=== PATIENT | female | born 1990 | race Caucasian/White ===

== ENCOUNTER 2019-01-08 20:31 | Outpatient (CLI) | payer MEDICAID ==
[~2019-01-08] VITALS: Ht 157.5 cm; Wt 86.4 kg
[2019-01-08 21:03] VITALS: BP 111/63; PULSE 89; RESP 18
[2019-01-08] MEDS ORDERED: PREN-99 PO (21:12)
[2019-01-08] MEDS ORDERED: FOLI-49 PO (21:12)
[2019-01-08 21:14] VITALS: Ht 157.5 cm; Wt 86.4 kg
--- NOTE | 2019-01-08 23:47 | PN ---
Triage Information Date/Time 01/08/19 Reason for visit: headache ,vomiting mucous discharge ,spot vision Weeks of Gestation 36w4d /Para Diabetes: none Hypertention: none Additional information headache resolved with tylenol Objective Vital Signs Date Temp Pulse Resp B/P (MAP) Pulse Ox O2 O2 Flow FiO2 Time Delivery Rate 01/08/19 99.0 89 18 111/63 Room Air 21:03 (79) Heart Rate: 130's Heart Rate Comments CAT I tracing Contractions: None Exam Results/Medications Result Diagram: 01/08/19214901/08/192149 Results 24 hrs Laboratory Tests Test 01/08/19 21:15 01/08/19 21:50 Urine Color YELLOW Urine Clarity SLIGHTLY CLOUDY A Urine pH 5.0 Urine Specific [place] 1.028 Urine Ketones TRACE A Urine Nitrite NEGATIVE Urine Bilirubin NEGATIVE Urine Urobilinogen NEGATIVE Urine Leukocyte Esterase TRACE A Urine Microscopic RBC 7 H Urine Microscopic WBC 6 H Urine Squamous Epithelial Cells FEW Urine Calcium Oxalate Crystals MODERATE Urine Bacteria FEW A Urine Mucus MODERATE Urine Hemoglobin 1+ H Urine Glucose NEGATIVE Urine Total Protein NEGATIVE White Blood Count 12.1 H Red Blood Count 3.90 L Hemoglobin 11.5 L Hematocrit 35.1 L Mean Corpuscular Volume 90.0 Mean Corpuscular Hemoglobin 29.5 Mean Corpuscular Hemoglobin Concent 32.8 Red Cell Distribution Width 14.4 Platelet Count 220 Mean Platelet Volume 11.3 H Immature Granulocytes % 0.400 Neutrophils % 79.2 H Lymphocytes % 12.1 L Monocytes % 8.0 Eosinophils % 0.2 Basophils % 0.1 Nucleated Red Blood Cells % 0.0 Immature Granulocytes # 0.050 H Neutrophils # 9.6 H Lymphocytes # 1.5 Monocytes # 1.0 H Eosinophils # 0.0 Basophils # 0.0 Nucleated Red Blood Cells # 0.0 Prothrombin Time 12.2 Prothrombin Time Ratio 1.0 INR International Normalized Ratio 0.89 Activated Partial Thromboplast Time 29.7 Sodium Level 136 Potassium Level 3.5 Chloride Level 106 Carbon Dioxide Level 22 Anion Gap 8 Blood Urea Nitrogen 8 Creatinine 0.42 L Est Glomerular Filtrat Rate mL/min > 60 Glucose Level 87 Uric Acid 4.4 Calcium Level 8.5 Total Bilirubin 0.3 Direct Bilirubin 0.00 Indirect Bilirubin 0.3 Aspartate Amino Transf (AST/SGOT) 15 Alanine Aminotransferase (ALT/SGPT) 8 L Alkaline Phosphatase 113 Total Protein 6.8 Albumin 3.4 Globulin 3.40 H Albumin/Globulin Ratio 1.00 Imaging Results BPP 8/8 MORENO 11.2 EFW 2904gm Disposition: Discharge Assessment/Plan IUP 36w4d headahe resolved No GHTN plan discharge home with routine labor instructions RTH prn SANCHEZ SOTO MD Jan 08, 2019 23:46
--- NOTE | 2019-01-09 04:26 | TRIAGE ---
OB Triage Datetime Report Generated by CPN: 01/09/2019 04:26 Datetime: 01/08/2019 22:36 Labor Evaluation Frequency: 2.5-6 Monitor Mode: External Duration (sec)2399: 50-120 Quality: Mild Pattern: Normal: <= 5 Contractions in 10 Minutes Resting Tone [place]: Relaxed Heart Rate FHR Baseline Rate: 150 Monitor Mode: External US Variability: Moderate 6-25 bpm Accelerations: Prolonged Decelerations: None Category: Category I Datetime: 01/08/2019 22:19 Temperature Route: Axillary Datetime: 01/08/2019 22:17 Monitor Mode: External Monitor Mode: External US Datetime: 01/08/2019 22:00 Labor Evaluation Frequency: irregular Monitor Mode: External Duration (sec)2399: 50-90 Quality: Mild Pattern: Normal: <= 5 Contractions in 10 Minutes Resting Tone [place]: Relaxed Heart Rate FHR Baseline Rate: 145 Monitor Mode: External US Variability: Moderate 6-25 bpm Accelerations: 15X15 Decelerations: None Category: Category I Datetime: 01/08/2019 21:55 Monitor Mode: External Monitor Mode: External US Datetime: 01/08/2019 21:20 Vaginal Exam Dilatation (cms): 1.0 Effacement (%): 30 Station: -3 Exam By: danna fowler RN Cervix, Consistency: Soft Cervix, Position: Posterior Datetime: 01/08/2019 21:09 Monitor Mode: External Datetime: 01/08/2019 21:03 Stage of : OB Triage Maternal Assessment Level of Consciousness: Keenly Alert, Responsive DTR's/Clonus: DTRs 2+; No Clonus DTR's/Clonus: DTRs 2+; No Clonus Headache: Denies Headache: Generalized Blurred Vision: No Blurred Vision: Yes Respiratory Effort: Unlabored; Regular Rhythm; Equal Expansion Breath Sounds, Left: Clear and Equal Breath Sounds, Right: Clear and Equal Nausea/Vomiting: Hx of Nausea/Vomiting RUQ Epigastric Pain: Denies RUQ Epigastric Pain: Denies Facial Edema: None Facial Edema: None Fall Risk Assessment History of Falling: (0) No Secondary Diagnosis: (0) No Ambulatory Aid: (0) Bedrest/Nurse Assist IV Therapy: (0) No Gait: (0) Normal/Bedrest/Immobile Mental Status: (0) Oriented to Own Ability Fall Score: 0 Fall Risk Score Definition: No Risk: No action required Pain Assessment Pain Scale: 8 Pain Presence: Constant Pain Type: Ache Pain Location: Head Pain Relief Measures: Comfort Measures Datetime: 01/08/2019 20:59 Stage of : OB Triage Datetime: 01/08/2019 20:56 Time of Arrival: 01/08/2019 20:20 EGA: 36.4 Arrived By: Ambulatory Arrived From: Home Chief Complaint: c/o headache all day, seeing spots, vomitting, white mucus discharge Movement: Present Contractions: Denies/Absent Rupture of Membranes: Denies Vaginal Bleeding: None Vaginal Discharge: Present Recent Sexual Intercouse: Denies Abdominal Trauma: Not Applicable Patient Complaints: Headache; Visual Disturbance; Nausea; Vomiting Time Provider Notified: 01/08/2019 21:15 Provider Notified: TERRY Initial Plan: edith AGGARWAL MD
--- NOTE | 2019-01-09 04:38 | TRIAGE ---
OB Triage Datetime Report Generated by CPN: 01/09/2019 04:38 Datetime: 01/08/2019 21:03 Fall Score: 0 Fall Risk Score Definition: No Risk: No action required Datetime: 01/08/2019 20:56 EGA: 36.4
--- NOTE | 2019-01-09 04:46 | TRIAGE ---
OB Triage Datetime Report Generated by CPN: 01/09/2019 04:46 Datetime: 01/08/2019 21:03 Fall Score: 0 Fall Risk Score Definition: No Risk: No action required Datetime: 01/08/2019 20:56 EGA: 36.4 Arrived By: Wheelchair
== END 2019-01-08 22:50 | disposition home or self-care (01) ==
LOC: OBT 20:31 → L-D 20:32 → OBT 22:50
PROVIDERS: ATTEND Obstetrics & Gynecology
DX: O26.893 Other specified pregnancy related conditions, third trimester (principal); R51 Headache; O21.9 Vomiting of pregnancy, unspecified; Z3A.36 36 weeks gestation of pregnancy
CPT/HCPCS: 76815; 76818; 80053; 81001; 84560; 85025; 85610; 85730; 87086; Z7500; G0463

== ENCOUNTER 2019-01-20 12:34 | Outpatient (CLI) | payer MEDICAID ==
[~2019-01-20] VITALS: Ht 157.5 cm; Wt 87.3 kg
[~2019-01-20 12:34] MED LIST: FOLI-49 PO; PREN-99 PO
[2019-01-20 12:44] VITALS: Ht 157.5 cm; Wt 87.3 kg
[2019-01-20 13:02] VITALS: BP 98/57; PULSE 88; RESP 18
--- NOTE | 2019-01-20 19:45 | PN ---
Triage Information Date/Time Reason for visit: DFM Weeks of Gestation 38 weeks /Para Diabetes: none Hypertention: none Objective Vital Signs Date Temp Pulse Resp B/P (MAP) Pulse Ox O2 O2 Flow FiO2 Time Delivery Rate 01/20/19 98.1 88 18 98/57 (71) Room Air 13:02 Heart Rate: 120's Heart Rate Comments Reactive Results/Medications Imaging Results BPP 02/26 Disposition: Discharge Assessment/Plan While being monitored patient feels the baby move well. SONIA ARMENTA MD Jan 20, 2019 19:45
--- NOTE | 2019-01-20 19:52 | TRIAGE ---
OB Triage Datetime Report Generated by CPN: 01/20/2019 19:51 Datetime: 01/20/2019 19:38 Labor Evaluation Frequency: 5-6 Monitor Mode: External Duration (sec)2399: 60-150 Pattern: Normal: <= 5 Contractions in 10 Minutes Heart Rate FHR Baseline Rate: 135 Monitor Mode: External US Variability: Moderate 6-25 bpm Accelerations: 15X15 Decelerations: None Category: Category I Datetime: 01/20/2019 19:30 Monitor Mode: External US Datetime: 01/20/2019 19:08 Maternal Assessment Level of Consciousness: Keenly Alert, Responsive Headache: Denies Blurred Vision: No Respiratory Effort: Unlabored; Regular Rhythm; Equal Expansion Breath Sounds, Left: Clear and Equal Breath Sounds, Right: Clear and Equal Pain Assessment Pain Scale: 0 Pain Presence: None/Denies Pain Type: N/A Datetime: 01/20/2019 18:30 Vaginal Exam Dilatation (cms): 1.0 Effacement (%): 30 Station: -3 Exam By: MSalazar RN Datetime: 01/20/2019 18:26 Pain Assessment Pain Scale: 0 Pain Presence: None/Denies Pain Type: N/A Pain Goal: 0 Datetime: 01/20/2019 16:17 Labor Evaluation Frequency: 6-8 Monitor Mode: External Duration (sec)2399: 50-80 Quality: Mild Pattern: Normal: <= 5 Contractions in 10 Minutes Resting Tone [place]: Relaxed Heart Rate FHR Baseline Rate: 125 Monitor Mode: External US Variability: Moderate 6-25 bpm Accelerations: 10X10 Decelerations: None Category: Category I Pain Assessment Pain Scale: 5 Pain Presence: Intermittent Pain Type: Cramping Pain Location: Perineum Pain Goal: 3 Pain Relief Measures: Comfort Measures Datetime: 01/20/2019 15:59 Stage of : OB Triage Datetime: 01/20/2019 15:52 Vaginal Exam Dilatation (cms): 1.0 Effacement (%): 30 Station: -3 Exam By: MSalazar RN Datetime: 01/20/2019 15:29 Stage of : OB Triage Labor Evaluation Frequency: irregular Monitor Mode: External Duration (sec)2399: 70-110 Quality: Mild Pattern: Normal: <= 5 Contractions in 10 Minutes Resting Tone [place]: Relaxed Heart Rate FHR Baseline Rate: 130 Monitor Mode: External US Variability: Moderate 6-25 bpm Accelerations: 15X15 Decelerations: None Category: Category I Datetime: 01/20/2019 15:24 Stage of : OB Triage Datetime: 01/20/2019 15:02 Pain Assessment Pain Scale: 5 Pain Presence: Intermittent Pain Type: Cramping Pain Location: Abdomen Pain Goal: 0 Datetime: 01/20/2019 14:10 Labor Evaluation Frequency: irregular Monitor Mode: External Duration (sec)2399: 100-120 Quality: Mild Pattern: Normal: <= 5 Contractions in 10 Minutes Resting Tone [place]: Relaxed Heart Rate FHR Baseline Rate: 135 Monitor Mode: External US Variability: Moderate 6-25 bpm Accelerations: 15X15 Decelerations: None Category: Category I Datetime: 01/20/2019 13:30 Labor Evaluation Frequency: irregular Monitor Mode: External Duration (sec)2399: 80-110 Quality: Mild Pattern: Normal: <= 5 Contractions in 10 Minutes Resting Tone [place]: Relaxed Heart Rate FHR Baseline Rate: 135 Monitor Mode: External US Variability: Moderate 6-25 bpm Accelerations: 15X15 Decelerations: None Category: Category I Datetime: 01/20/2019 12:57 Stage of : OB Triage Assessment Type: Triage Maternal Assessment Level of Consciousness: Keenly Alert, Responsive DTR's/Clonus: DTRs 2+; No Clonus Headache: Generalized Blurred Vision: No Respiratory Effort: Unlabored; Regular Rhythm; Equal Expansion Breath Sounds, Left: Clear and Equal Breath Sounds, Right: Clear and Equal Nausea/Vomiting: Denies RUQ Epigastric Pain: Denies Lower Extremities Edema: None Upper Extremities Edema: None Facial Edema: None Temperature Route: Oral Fall Risk Assessment History of Falling: (0) No Secondary Diagnosis: (0) No Ambulatory Aid: (0) Bedrest/Nurse Assist IV Therapy: (0) No Gait: (0) Normal/Bedrest/Immobile Mental Status: (0) Oriented to Own Ability Fall Score: 0 Fall Risk Score Definition: No Risk: No action required Pain Assessment Pain Scale: 5 Pain Presence: Intermittent Pain Type: Cramping Pain Location: Abdomen Pain Goal: 0 Pain Relief Measures: Comfort Measures Datetime: 01/20/2019 12:50 Time of Arrival: 01/20/2019 12:29 EGA: 38.2 Arrived By: Ambulatory Arrived From: Office Chief Complaint: decreased movement Movement: Decreased Contractions: Denies/Absent Rupture of Membranes: Denies Vaginal Bleeding: None Vaginal Discharge: Present Recent Sexual Intercouse: Denies Abdominal Trauma: Not Applicable Patient Complaints: None Initial Plan: monitor FHT, BPP, SVE Datetime: 01/08/2019 21:03 Fall Score: 0 Fall Risk Score Definition: No Risk: No action required Datetime: 01/08/2019 20:56 EGA: 36.4
== END 2019-01-20 19:48 | disposition home or self-care (01) ==
LOC: OBT 12:34 → L-D 12:34 → OBT 19:48
PROVIDERS: ATTEND Obstetrics & Gynecology
DX: O36.8130 Decreased fetal movements, third trimester, not applicable or unspecified (principal); Z3A.38 38 weeks gestation of pregnancy
CPT/HCPCS: 76815; 76818; Z7500; G0463

== ENCOUNTER 2019-02-02 03:43 | Inpatient (IN) | payer MEDICAID ==
[~2019-02-02] VITALS: Ht 160 cm; Wt 86.7 kg
[~2019-02-02 03:43] MED LIST changes: -FOLI-49 PO
[2019-02-02 04:13] VITALS: Ht 160 cm; Wt 86.7 kg
[2019-02-02 04:14] VITALS: BP 111/57; PULSE 78; RESP 18
[2019-02-02] MEDS ORDERED: LACTATED RINGER'S 1,000 ML IV PRN (05:34)
[2019-02-02] MEDS ORDERED: METHYLERGONOVINE 0.2 MG INJ IM PRN ×2 (06:00→21:00)
[2019-02-02] MEDS ORDERED: IBUPROFEN 600 MG TAB PO PRN (06:00)
[2019-02-02] MEDS ORDERED: BUTORPHANOL 2 MG INJ IV PRN (06:00)
[2019-02-02] MEDS ORDERED: OXYTOCIN 30 UNITS/LR 500 ML IV SCH ×4 (06:00→20:59)
[2019-02-02] MEDS ORDERED: CARBOPROST 250 MCG INJ IM PRN ×2 (06:00→21:00)
[2019-02-02] MEDS ORDERED: LIDOCAINE 1% (MPF) 30 ML INJ INJ PRN (06:00)
[2019-02-02] MEDS ORDERED: OXYTOCIN 30 UNITS/LR 500 ML IV PRN ×2 (06:00→21:00)
[2019-02-02] MEDS ORDERED: MISOPROSTOL 200 MCG TAB PR PRN ×2 (06:00→21:00)
--- NOTE | 2019-02-02 06:03 | TRIAGE ---
OB Triage Datetime Report Generated by CPN: 02/02/2019 06:03 Datetime: 02/02/2019 05:00 Labor Evaluation Frequency: 4-9 Monitor Mode: External Duration (sec)2399: 110-150 Quality: Moderate Pattern: Normal: <= 5 Contractions in 10 Minutes Resting Tone [place]: Relaxed Heart Rate FHR Baseline Rate: 120 Monitor Mode: External US Variability: Moderate 6-25 bpm Accelerations: 15X15 Decelerations: Early Datetime: 02/02/2019 04:40 Vaginal Exam Dilatation (cms): 3.0 Effacement (%): 30 Station: -3 Exam By: SAGE Membrane Status: Intact Vaginal Bleeding: Normal Show Cervix, Consistency: Firm Cervix, Position: Posterior Presentation 'A': Cephalic Datetime: 02/02/2019 04:09 Time of Arrival: 02/02/2019 03:42 EGA: 40.1 Arrived By: Wheelchair Arrived From: Home Chief Complaint: SPOTTING Movement: Present Contractions: Denies/Absent Rupture of Membranes: Denies Vaginal Bleeding: None Vaginal Discharge: Denies Recent Sexual Intercouse: Denies Abdominal Trauma: Not Applicable Patient Complaints: None Time Provider Notified: 02/02/2019 04:20 Provider Notified: BRITTANY Initial Plan: NST, CALL OB FOR ORDERS Datetime: 02/02/2019 04:01 Assessment Type: Triage Maternal Assessment Level of Consciousness: Keenly Alert, Responsive DTR's/Clonus: DTRs 2+; No Clonus Headache: Denies Blurred Vision: No Respiratory Effort: Unlabored; Regular Rhythm; Equal Expansion Breath Sounds, Left: Clear and Equal Breath Sounds, Right: Clear and Equal Nausea/Vomiting: Denies RUQ Epigastric Pain: Denies Facial Edema: None Fall Risk Assessment History of Falling: (0) No Secondary Diagnosis: (0) No Ambulatory Aid: (0) Bedrest/Nurse Assist IV Therapy: (0) No Gait: (0) Normal/Bedrest/Immobile Mental Status: (0) Oriented to Own Ability Fall Score: 0 Fall Risk Score Definition: No Risk: No action required Pain Assessment Pain Scale: 2 Pain Presence: Intermittent Pain Type: Pressure Pain Location: Abdomen Pain Goal: 3 Pain Relief Measures: Comfort Measures Datetime: 01/20/2019 12:57 Fall Score: 0 Fall Risk Score Definition: No Risk: No action required Datetime: 01/20/2019 12:50 EGA: 38.2 Datetime: 01/08/2019 21:03 Fall Score: 0 Fall Risk Score Definition: No Risk: No action required Datetime: 01/08/2019 20:56 EGA: 36.4
[2019-02-02] MEDS: LACTATED RINGER'S 1,000 ML IV SCH ×2 (06:31→12:19)
--- NOTE | 2019-02-02 07:15 | TRIAGE ---
OB Triage Datetime Report Generated by CPN: 02/02/2019 07:15 Datetime: 02/02/2019 07:00 Frequency: IRREG Monitor Mode: External Duration (sec)2399: 100-140 Quality: Mild Pattern: Normal: <= 5 Contractions in 10 Minutes Resting Tone [place]: Relaxed FHR Baseline Rate: 120 Monitor Mode: External US Variability: Moderate 6-25 bpm Accelerations: 15X15 Decelerations: None Category: Category I Datetime: 02/02/2019 06:00 Frequency: IRREG Monitor Mode: External Duration (sec)2399: 40-150 Quality: Mild Pattern: Normal: <= 5 Contractions in 10 Minutes Resting Tone [place]: Relaxed FHR Baseline Rate: 120 Monitor Mode: External US Variability: Moderate 6-25 bpm Accelerations: 15X15 Decelerations: None Category: Category I
[2019-02-02] MEDS ORDERED: AMPICILLIN 2 GM/NS (PMX) 100 ML IV ONE (07:30)
--- NOTE | 2019-02-02 07:50 | HP ---
Date/Time of Note Date/Time of Note DATE: 02/02/19 TIME: 07:43 OB - History Hx of Present Free Text/Dictation 28 y,o at 40w1d with c/o vaginal spotting since 02/02/19. Initial VE 10/18/-3 CAt I tracing unevenful course. GBS positive admitted for Augmentation. Chief Complaint: vaginal spotting Estimated Due Date: Feb 01, 2019 : 2 Para: 1 Spontaneous : 0 Therapeutic : 0 Care: Other Ultrasounds: Normal mid trimester US Medical Complications: None Past Family/Social History * Past Medical, Surgical, Family and Obstetric Histories reviewed from chart. Blood Type: A+ Rubella: immune RPR/VDRL: Negative GBS Status: Positive HBsAG: Negative OB Admission Exam Vital Signs Vital Signs Vital Signs Date Temp Pulse Resp B/P (MAP) Pulse Ox O2 O2 Flow FiO2 Time Delivery Rate 02/02/19 98.0 78 18 111/57 Room Air 04:14 (75) Physical Exam HEENT: WNL Heart: Rhythm Normal Lungs: Clear, Equal Abdomen: WNL Extremities: Normal Reflexes: Normal Cervical Dilatation: 3cm Effacement: Other (30%) Station: -3 Membranes: Intact Amniotic Fluid: Unevaluable Heart Rate: 130's Accelerations: Accelerations Present Decelerations: No Decelerations Varibility: Moderate Contractions on Admission: >10 Minutes Apart Intensity: Mild Last 72 hours Lab Results CBC & BMP 02/02/19 05:00 OB Assessment/Plan Other Assessment: A IUP 40w1d in early labor Plan: Other (Augmentation) Induction Method: per Pitocin Protocol SANCHEZ SOTO MD Feb 02, 2019 07:50
--- NOTE | 2019-02-02 10:53 | QN ---
Documentation Comment progress note patient seen and evaluated no complaints positive ctx vs stable afebrile ab gravid nt extremity no edema no calf tenderness ve4/70/-2 intact fhr cat 1 a/ iup at term, in labor, gbs pos p/ gbs prophylaxis consider pitocin as needed anticipate vaginal delivery NIKKI STEWART MD Feb 02, 2019 10:53
[2019-02-02] MEDS: AMPICILLIN 1 GM/NS (PMX) 50 ML IV SCH ×3 (12:18→20:13)
[2019-02-02 19:52] VITALS: BP 109/57; PULSE 81; RESP 19
--- NOTE | 2019-02-02 20:59 | LDN ---
Date/Time of Note Date/Time of Note DATE: 02/02/19 TIME: 20:58 Delivery Summary Weeks of Gestation 40 Placenta Delivered: Spontaneously Meconium: none Laceration repair: 1st degree vaginal laceration repair with 3-0 chromic Anesthesia type: Local Estimated blood loss: 200 Sponge & Needle done & correct: Yes All needle counts correct: Yes Any foreign bodies felt in the: No Infant Delivery Information Sex Infant Sex: female Apgars 1 Minute: 8 5 Minute: 9 Suctioning Nose & mouth suctioned at bran: No Delee suction performed: No Umbilical Cord Umbilical cord with: 3 Vessels Cord presentations: no nuchal cord Cord Blood was obtained: Yes NIKKI STEWART MD Feb 02, 2019 20:59
[2019-02-02] MEDS ORDERED: WITCH HAZEL/GLYCERIN PAD PR PRN (21:00)
[2019-02-02] MEDS ORDERED: OXYCODONE/ASPIRIN (4.88/325) TAB PO PRN (21:00)
[2019-02-02] MEDS ORDERED: NACL 0.9% 3 ML SYG IV SCH (21:00)
[2019-02-02 22:09] VITALS: BP 109/59; PULSE 83; RESP 20
[2019-02-02 22:55] VITALS: RESP 18
[2019-02-02 23:30] VITALS: BP 105/58; PULSE 72; RESP 18
[2019-02-03] MEDS: LANOLIN HPA 1 PKT TOP PRN (00:17)
[2019-02-03] MEDS: IBUPROFEN 600 MG TAB PO SCH ×4 (00:17→17:53)
[2019-02-03 04:35] VITALS: BP 99/52; PULSE 73; RESP 18
[2019-02-03 08:00] VITALS: BP 102/58; PULSE 67; RESP 18
[2019-02-03 12:00] VITALS: BP 103/61; PULSE 80; RESP 19
[2019-02-03 16:00] VITALS: BP 98/61; PULSE 83; RESP 19
--- NOTE | 2019-02-03 18:38 | PD.PPDC ---
HOSE INSPECTOR AND PATCHER Discharge Instruction Condition [id number] Patient Condition: Fqxuv3s Fair Diet Zifod5Gc Diet: Ibyem4g Resume Regular Diet Activity/Restrictions Mdurl2Pb Activity: Wkrpf8a Normal Activity May Shower [id number] Restrictions: Dpcvl5b No Exercising No Lifting No Driving No Sexual Activity Nothing in the Vagina No [place] No Tampons, douche Follow-up Follow-up with Physician: 3, Week/Weeks Return to clinic for [id number] MOBILE QA TESTER Instructions: Phary3i Fever greater than 101 Chills Worsening abdominal pain Excessive Vaginal Bleeding More than 2 pads per hour Unable to tolerate diet [id number] OB Instructions: Xxyqu9t Breast Tenderness Depression Blurried Vision Headache [id number] Surgical Instructions: Xjmct4b Incisional Drainage Incisional Redness NIKKI STEWART MD Feb 03, 2019 18:38
[2019-02-03 20:00] VITALS: BP 100/62; PULSE 78; RESP 18
[2019-02-04] MEDS: IBUPROFEN 600 MG TAB PO SCH ×3 (01:13→09:43)
[2019-02-04 04:52] VITALS: BP 102/71; PULSE 82; RESP 17
[2019-02-04 08:00] VITALS: BP 105/54; PULSE 79; RESP 18
[2019-02-04] MEDS: LANOLIN HPA 1 PKT TOP PRN (15:34)
--- NOTE | 2019-02-05 16:15 | DELSUM ---
Delivery Summary A-C Datetime Report Generated by CPN: 02/05/2019 16:15 DELIVERY PERSONNEL Fiber Analyst: Natividad Kitchen MATERNAL INFORMATION Delivery Anesthesia: None Medications in Delivery: OXYTOCIN, 30UNITS IN 500ML LR; Delivery QBL (ml): 200 Placenta Cultured: No LABOR SUMMARY EDC: 02/01/2019 00:00 No. Babies in Womb: 1 Attempted: No Labor Anesthesia: None LABOR INFORMATION Reason for Induction: Not Applicable Onset of Labor: 02/02/2019 10:24 Complete Dilatation: 02/02/2019 20:40 Oxytocin: Augmentation Group B Beta Strep: Positive Antibiotics # of Doses: 4 Antibiotics Time of Last Dose: 02/02/2019 20:13 Steroids Given: None Reason Steroids Not Administered: Not Applicable MEMBRANES Membranes Rupture Method: Spontaneous Rupture of Membranes: 02/02/2019 17:55 Length of Rupture (hr): 2.92 Amniotic Fluid Color: Clear Amniotic Fluid Amount: Scant Amniotic Fluid Odor: Normal STAGES OF LABOR Stage 1 hr: 10 Stage 1 min: 16 Stage 2 hr: 0 Stage 2 min: 10 Stage 3 hr: 0 Stage 3 min: 1 Total Time in Labor hr: 10 Total Time in Labor min: 27 VAGINAL DELIVERY Episiotomy: None Laceration Extension: First Degree Laceration Type: Vaginal Initial Vag Sponge Count: 10 Final Vag Sponge Count: 10 Initial Vag Sharps Count: 1+1 Final Vag Sharps Count: 2 Sponge Count Correct: Yes; Vaginal Sweep Performed Sharps Count Correct: Yes BABY A INFORMATION Infant Delivery Date/Time: 02/02/2019 20:50 Method of Delivery: Vaginal Born in Route : No (Annotations: Data stored by N on behalf of user) : N/A Forceps: N/A Vacuum Extraction: N/A Shoulder Dystocia : N/A SHOULDER DYSTOCIA BABY A Infant Delivery Date/Time: 02/02/2019 20:50 PRESENTATION/POSITION BABY A Presentation: Cephalic Cephalic Presentation: Vertex Vertex Position: Left Occipital Anterior Breech Presentation: N/A PLACENTA INFORMATION BABY A Placenta Delivery Time : 02/02/2019 20:51 Placenta Method of Delivery: Spontaneous Placenta Status: Delivered SCORES BABY A Heart Rate 1 min: >100 bpm Resp Effort 1 min: Good Cry Reflex Irritability 1 min: Cough/Sneeze/Pulls Away Muscle Tone 1 min: Active Motion Color 1 min: Blue/Pale Resuscitation Effort 1 min: Tactile Stimulation SCORE 1 MIN: 8 Heart Rate 5 min: >100 bpm Resp Effort 5 min: Good Cry Reflex Irritability 5 min: Cough/Sneeze/Pulls Away Muscle Tone 5 min: Some Flexion of Extrem Color 5 min: Body [place], Extremit Blue Resuscitation Effort 5 min: Tactile Stimulation SCORE 5 MIN: 8 INFORMATION BABY A Gestational Age at Delivery: 40.1 Gestational Status: Full Term- 39- 40.6 Weeks Infant Outcome : Liveborn, with signs of life Condition : Stable Sex: Female IDENTIFICATION/MEDS BABY A ID Band Number: [id number] ID Band Location: Right Leg; Left Arm Sensor Applied: Yes Sensor Number: [id number] Sensor Location : Cord Clamp Vitamin K Given : Not Given Erythromycin Given: Not Given WEIGHT/LENGTH BABY A Infant Birthweight (gm): 3280 Infant Weight (lb): 7 Weight (oz): 4 Length (in): 19.00 Length (cm): 48.26 CORD INFORMATION BABY A No. Cord Vessels: 3 Nuchal Cord : N/A Cord Blood Taken: Yes Infant Suction: Mouth; Nose ASSESSMENT BABY A Infant Complications: None Physical Findings at Delivery: Within Normal Limits Respirations: Appears Normal Teacher Of The Visually Impaired/ALS Called : No Infant Care By: JOCELYNE DURAN RN Transferred To: Remains with Mother
--- NOTE | 2019-02-12 08:26 | DS ---
Date/Time of Note Date/Time of Note DATE: 02/12/19 TIME: 08:25 Obstetrical Discharge Record Final Diagnosis Final Diagnosis: Term delivered Vaginal Delivery Obstetrical Delivery: Spontaneous, Laceration, Repaired Condition on Discharge Physical Assessment Last Vitals: stable afebrile Voiding: Yes Bowel Movement: Yes Breast: Soft, non-tender, Filling Fundus: Firm Abdomen and Incision: soft nt Calf Tenderness: No Patient Condition: Fair NIKKI STEWART MD Feb 12, 2019 08:26
== END 2019-02-04 16:05 | disposition home or self-care (01) | DRG 807 ==
LOC: L-D 03:43 → OBT 03:43 → L-D 05:14 → OBT 05:14 → L-D 07:00 → PP1 22:50
PROVIDERS: ADMIT Obstetrics & Gynecology; ATTEND Obstetrics & Gynecology
PROC: 10E0XZZ Delivery of Products of Conception, External Approach (ICD-10-PCS; principal; 2019-02-02)
PROC: 0HQ9XZZ Repair Perineum Skin, External Approach (ICD-10-PCS; 2019-02-02)
DX: O99.824 Streptococcus B carrier state complicating childbirth (principal); Z37.0 Single live birth; Z3A.40 40 weeks gestation of pregnancy; O70.0 First degree perineal laceration during delivery
CPT/HCPCS: 36415; 76815; 85025; 85610; 85730; 86592; 86850; 86900; 86901; G0463; J0290; J2590; J7120